=== PATIENT | female | born 1945 | race Caucasian/White ===

== ENCOUNTER → 2016-05-28 | Outpatient (CLI) | payer MEDICARE, BC ==
[~2016-05-28] MED LIST: ACIPHEX; ACIPHEX20 MG PO; CALCIUM 600MG+D1 TAB PO; CHOLESTEROL MA600 MG PO; FISH OIL1 IU PO; FISH OIL1000 MG PO; FORTEO; FORTEO250 MCG/ML SQ; FOSAMAX 10M10 MG/TAB PO; GLUCOSAMINE & C1 CA2 PO; IBUPROFEN PO; LORTAB 7.5/5001 TAB PO; MOTRIN 200200 MG/TAB PO; MULTIPLE VITAMI1 TA5 PO; PHENERGAN 25 TA25 MG PO; RECLAST5 MG/100 M IV; VITAMIN D2000 I1 PO; VITAMIN D32000 IU PO
== END ==
LOC: MC.RAD 14:40
DX: Z12.31 Encounter for screening mammogram for malignant neoplasm of breast (principal)

== ENCOUNTER 2016-06-24 08:39 | Outpatient (CLI) | payer MEDICARE, BC ==
[~2016-06-24] VITALS: Ht 165.1 cm; Wt 86.3 kg
[~2016-06-24 08:39] MED LIST changes: -FISH OIL1000 MG PO; -FOSAMAX 10M10 MG/TAB PO; -GLUCOSAMINE & C1 CA2 PO; -MOTRIN 200200 MG/TAB PO; -MULTIPLE VITAMI1 TA5 PO; -VITAMIN D32000 IU PO
[2016-06-24 09:15] VITALS: BP 100/69; PULSE 77; TEMP 98.1
[2016-06-24] MEDS ORDERED: VITAMIN D32000 IU PO (09:21)
[2016-06-24] MEDS ORDERED: MOTRIN 200200 MG/TAB PO (09:22)
[2016-06-24] MEDS ORDERED: FISH OIL1000 MG PO (09:22)
[2016-06-24] MEDS ORDERED: FOSAMAX 10M10 MG/TAB PO (09:27)
== END 2016-06-24 11:24 | disposition home or self-care (01) ==
LOC: EUO 08:39
DX: M81.0 Age-related osteoporosis without current pathological fracture (principal)
CPT/HCPCS: J3489

== ENCOUNTER 2016-11-12 07:04 | Day surgery (SDC) | payer MEDICARE, BC ==
[~2016-11-12] VITALS: Ht 167.6 cm; Wt 91.7 kg
[2016-11-12] VITALS (11 sets, daily range): BP systolic 105–138; BP diastolic 67–84; PULSE 53–100; TEMP 97.8–98.1
[~2016-11-12 07:04] MED LIST changes: +FISH OIL1000 MG PO; +FOSAMAX 10M10 MG/TAB PO; +MOTRIN 200200 MG/TAB PO; +VITAMIN D32000 IU PO
[2016-11-12] MEDS ORDERED: MULTIPLE VITAMI1 TA5 PO (07:23)
[2016-11-12] MEDS ORDERED: GLUCOSAMINE & C1 CA2 PO (07:24)
[2016-11-13 02:33] VITALS: BP 110/60; PULSE 77; TEMP 98
[2016-11-13 05:59] VITALS: BP 97/57; PULSE 61; TEMP 98.1
== END 2016-11-13 10:30 | disposition home or self-care (01) ==
LOC: SDCO 07:04 → SURG 11:15 → SDCO 11-13 10:30
DX: K21.0 Gastro-esophageal reflux disease with esophagitis (principal); K44.9 Diaphragmatic hernia without obstruction or gangrene; K22.70 Barrett's esophagus without dysplasia; G89.29 Other chronic pain; M54.9 Dorsalgia, unspecified; Z90.710 Acquired absence of both cervix and uterus; Z90.49 Acquired absence of other specified parts of digestive tract; Z80.0 Family history of malignant neoplasm of digestive organs; Z80.9 Family history of malignant neoplasm, unspecified
CPT/HCPCS: OP; J0690; J1100; J2270; J2405; J2704; J2710; J2765; J3010; J7120

== ENCOUNTER 2017-06-17 14:45 | Outpatient (CLI) | payer MEDICARE, BC ==
[~2017-06-17] VITALS: Ht 167.6 cm; Wt 90.9 kg
[~2017-06-17 14:45] MED LIST changes: +GLUCOSAMINE & C1 CA2 PO; +MULTIPLE VITAMI1 TA5 PO
[2017-06-17 15:12] VITALS: BP 113/76; PULSE 80; TEMP 97.4
== END 2017-06-17 16:37 | disposition home or self-care (01) ==
LOC: EUO 14:45
DX: M81.0 Age-related osteoporosis without current pathological fracture (principal)
CPT/HCPCS: J3489

== ENCOUNTER → 2017-08-06 | Outpatient (CLI) | payer MEDICARE, BC | LOC: COL.RAD 09:50 | DX: K22.4 Dyskinesia of esophagus (principal) ==

== ENCOUNTER → 2017-10-22 | Outpatient (CLI) | payer MEDICARE, BC | LOC: COL.RAD 11:32 | DX: C69.31 Malignant neoplasm of right choroid (principal); M25.811 Other specified joint disorders, right shoulder ==

== ENCOUNTER → 2018-04-10 | Outpatient (CLI) | payer MEDICARE, BC | LOC: MC.RAD 14:20 | DX: Z12.31 Encounter for screening mammogram for malignant neoplasm of breast (principal) ==

== ENCOUNTER 2018-07-22 15:12 | Outpatient (CLI) | payer MEDICARE, BC ==
[~2018-07-22] VITALS: Ht 167.6 cm; Wt 93.1 kg
[2018-07-22 15:29] VITALS: BP 103/59; PULSE 78; TEMP 98
[2018-07-22] MEDS ORDERED: DEXILANT60 MG PO (15:33)
== END 2018-07-22 16:18 | disposition home or self-care (01) ==
LOC: EUO 15:12
DX: M81.0 Age-related osteoporosis without current pathological fracture (principal); Z79.899 Other long term (current) drug therapy
CPT/HCPCS: J3489

== ENCOUNTER → 2018-08-07 | Outpatient (CLI) | payer MEDICARE, BC ==
[~2018-08-07] MED LIST changes: +DEXILANT60 MG PO
== END ==
LOC: COL.VAS 14:00
DX: R60.0 Localized edema (principal)

== ENCOUNTER 2019-10-01 15:10 | Outpatient (CLI) | payer MEDICARE, BC ==
[~2019-10-01] VITALS: Ht 167.6 cm; Wt 87.0 kg
[2019-10-01 16:00] VITALS: BP 108/70; PULSE 70; TEMP 97.8
== END 2019-10-01 17:06 | disposition home or self-care (01) ==
LOC: EUO 15:10
DX: M81.0 Age-related osteoporosis without current pathological fracture (principal)
CPT/HCPCS: J3489

== ENCOUNTER → 2020-06-19 | Outpatient (CLI) | payer MEDICARE, BC | LOC: MC.RAD 14:15 | DX: Z12.31 Encounter for screening mammogram for malignant neoplasm of breast (principal) ==

== ENCOUNTER 2020-10-20 14:05 | Emergency (ER) | payer MEDICARE, BC ==
[~2020-10-20] VITALS: Ht 167.6 cm; Wt 79.5 kg
[2020-10-20 14:14] VITALS: TEMP 98.8
[2020-10-20 16:45] VITALS: BP 100/76; PULSE 84
== END 2020-10-20 16:45 | disposition home or self-care (01) ==
LOC: COL.ER 14:05
DX: S02.42XA Fracture of alveolus of maxilla, initial encounter for closed fracture (principal); S60.211A Contusion of right wrist, initial encounter; K21.9 Gastro-esophageal reflux disease without esophagitis; Z79.899 Other long term (current) drug therapy; W01.198A Fall on same level from slipping, tripping and stumbling with subsequent striking against other object, initial encounter; Y93.02 Activity, running

== ENCOUNTER 2023-11-09 14:53 | Inpatient (IN) | payer MEDICARE, BC ==
[~2023-11-09] VITALS: Ht 167.6 cm; Wt 78.1 kg
[~2023-11-09 14:53] MED LIST changes: +ASPIRIN E.C. 8181 MG PO; +EUCERIN1 CRE TP; +EVENITY (2210 MG/2.3 SQ; +PROTONIX 40MG T40 MG PO; +TYLENOL 500MG500 MG PO; +ULTRAM 50MG TAB50 MG PO; +VOLTAREN GEL 1%1 TU TP
[2023-11-09] MEDS ORDERED: Acetaminophen 500 MG TAB PO PRN (17:15)
[2023-11-09] MEDS ORDERED: traMADol 50 MG TAB PO PRN (17:30)
[2023-11-09] MEDS ORDERED: Mineral Oil/Petrolatum Cream 113 GM Jar TP PRN (17:30)
--- NOTE | 2023-11-09 19:27 | NUR ---
RECEIVED CHANGE OF SHIFT REPORT FROM DAY SHIFT NURSE. PATIENT RESTING IN BED, FRIEND AT BEDSIDE. EXIT ALARM ON, CALL LIGHT IN REACH.
--- NOTE | 2023-11-09 20:00 | NUR ---
UP WITH ASSIST X1, GAITBELT/FWW WITH SLOW GAIT DUE TO PAIN WITH MOVEMENT OF LLE. DENIES CHEST PAIN/SHORTNESS OF BREATH/NAUSEA AT THIS TIME. DENIES PASSING STOOL TODAY. SALINE LOCK IN PLACE. EXIT ALARM ON WHEN BACK IN BED, CALL LIGHT WITHIN PATIENT'S REACH. SEE MAR FOR PAIN OINTMENT APPLIED TO LEFT HIP.
[2023-11-09 20:10] VITALS: BP 101/63; PULSE 93; TEMP 98.7
[2023-11-09 22:00] VITALS: BP_SYST 101
[2023-11-10 06:00] VITALS: BP 89/44; PULSE 86; TEMP 98.2
[2023-11-10 07:00] VITALS: BP_SYST 89
--- NOTE | 2023-11-10 07:11 | NUR ---
CHANGE OF SHIFT REPORT GIVEN TO DAY SHIFT NURSEABHIJEET.
--- NOTE | 2023-11-10 08:30 | NUR ---
PATIENT IS ALERT AND ORIENTATED. VSS. PATIENT'S SBP RUNS LOW AT BASELINE. INCISION TO R HIP IS COVERED WITH AQUACELL AND IS CLEAN DRY AND INTACT. NO C/O PAIN AT THIS TIME. PATIENT C/O NAUSEA. PRN ZOFRAN ADMINISTERED TO PATIENT. PATIENT IS UP WITH ASSIST X1 WITH WALKER AND GAIT BELT. PATIENT HAS AN PERIPHERAL IV IN RAC. NO S/S OF COMPLICATIONS. NO FURTHER NEEDS AT THIS TIME. CALL LIGHT WITHIN REACH.
[2023-11-10 08:55] VITALS: BP 104/63
[2023-11-10] MEDS ORDERED: Calcium Carb/Vit D3 500 mg-200 Units TAB PO SCH (09:00)
[2023-11-10] MEDS ORDERED: Docusate Sodium 100 MG CAP PO SCH (09:00)
[2023-11-10] MEDS ORDERED: Multivitamin TAB PO SCH (09:00)
[2023-11-10] MEDS ORDERED: Polyethylene Glycol 3350 17 GM PDS PO SCH ×2 (09:00→21:00)
--- NOTE | 2023-11-10 12:50 | NUR ---
Data: Spiritual care visit offered during Regulator Operator rounds. Patient declined because she is trying to nap before her next physical therapy session. Assessment: None at this time. Plan of Care: Chaplains will remain available as needed/requested while Patient is admitted to this hospital.
--- NOTE | 2023-11-10 15:10 | NUR ---
Roving Changer met with patient to complete initial intake and welcome her to the rehab unit. Patient lives in [place] and sees Dr. Kerrie Richards for primary care. Patient gets her medications from [facility] with no difficulties and reported she has a cane, walker, shower chair, bedside commode, and stool riser available at home. Patient reported she is normally independent with ADLS including driving. Patient stated she used to have DPOA-HC designating a friend that is now . Patient was not interested in completing DPOA-HC at this time as she stated she did not know who she would want to designate. Patient's friend, Miracle (ph#[phone]) is at bedside and supportive.
[2023-11-10 17:46] VITALS: BP 97/64; PULSE 94; TEMP 98.1
[2023-11-10 19:00] VITALS: BP_SYST 97
--- NOTE | 2023-11-10 19:41 | NUR ---
RECEIVED CHANGE OF SHIFT REPORT FROM DAY SHIFT NURSE.
--- NOTE | 2023-11-10 20:00 | NUR ---
DENIES CHEST PAIN/SHORTNESS OF BREATH/NAUSEA AT THIS TIME. DENIES PASSING STOOL TODAY. DENIES FEELING BLOATED OR CONSTIPATED CURRENTLY. DECREASED ROM/STRENGTH TO LLE DUE TO PAIN DUE TO S/P HIP SURGERY REPAIR. DENIES NUMBNESS/TINGLING TO BLE AT THIS TIME. OBSERVED GAIT VERY SLOW/HESITATING WITH LLE DUE TO PAIN WITH MOVEMENT. PATIENT REPORTS HAVING PAIN TO LEFT ANTERIOR THIGH AREA WITH ALL MOVEMENT. PATIENT RESTING IN BED WITH EXIT ALARM ON, CALL LIGHT WITHIN PATIENT'S REACH.
--- NOTE | 2023-11-10 23:35 | NUR ---
COMPLAINED OF SEVERE LEFT ANT THIGH PAIN WITH MOVEMENT, GIVEN PAIN MEDS, SEE WILI AND APPLIED FRESH ICE PACK TO AREA OF COMPLAINTS. APPLIED ALSO PAIN CREAM PER PATIENT REQUEST.
[2023-11-11 06:00] VITALS: BP 95/58; PULSE 82; TEMP 97.9
[2023-11-11 06:30] VITALS: BP_SYST 95
--- NOTE | 2023-11-11 07:15 | NUR ---
CHANGE OF SHIFT REPORT GIVEN TO DAY SHIFT NURSETON.
[2023-11-11 17:07] VITALS: BP 104/66; PULSE 94; TEMP 99.1
[2023-11-11 19:00] VITALS: BP_SYST 104
--- NOTE | 2023-11-11 19:00 | NUR ---
RECEIVED CHANGE OF SHIFT REPORT FROM DAY SHIFT NURSE. PATIENT RESTING IN BED, EXIT ALARM ON, CALL LIGHT WITHIN PATIENT'S REACH.
[2023-11-11] MEDS ORDERED: Sennosides/Docusate 8.6-50 MG TAB PO SCH (21:00)
[2023-11-12 05:40] VITALS: BP 96/59; PULSE 82; TEMP 98.4
--- NOTE | 2023-11-12 07:29 | NUR ---
CHANGE OF SHIFT REPORT GIVEN TO DAY SHIFT NURSEABHIJEET.
[2023-11-12 07:40] VITALS: BP_SYST 96
--- NOTE | 2023-11-12 08:00 | NUR ---
PATIENT A&O. VSS. NO C/O PAIN OR N/V AT THIS TIME. PATIENT IS ASSIST X1 WITH WALKER AND GAIT BELT. L HIP DRESSING IS AN AQUACELL AND IS CLEAN, DRY, AND INTACT. PATIENT WANTS TO TRY THERAPIES WITHOUT PRN PAIN MEDICATIONS, BUT WILL NOTIFY STAFF IS MEDS ARE NEEDED FOR PAIN. PATIENT IS EATING BREAKFAST. NO FURTHER NEEDS AT THIS TIME. CALL LIGHT WITHIN REACH.
--- NOTE | 2023-11-12 09:26 | NUR ---
PATIENT ALERT AND ORIENTED X4. VSS. PATIENT HERE FOR LEFT HIP FRACTURE. AQUACELL TO LEFT HIP, CDI. PATIENT REPORTS MILD PAIN, DENIES NEED FOR PAIN MEDICATION THIS AM. AM MEDS ADMINISTERED. PATIENT ATE TWO BITES OF BREAKFAST, REPORTS FOOD IS NOT THAT GREAT, PATIENT OFFERED TWO PUDDING PACKS. NO FURTHER NEEDS. CALL LIGHT IN REACH. BED ALARM ON.
--- NOTE | 2023-11-12 13:09 | NUR ---
Machine Shop Repair Technician met with patient and her friend, Miracle at bedside to review and present copy of team conference notes. No discharge date has been set at this time. SW scheduled family meeting for Friday, the at 1015 with patient's friend, Miracle. SW invited patient to include anyone else she would want to participate.
[2023-11-12] MEDS ORDERED: oxyCODONE 5 MG TAB PO PRN (17:30)
[2023-11-12 17:56] VITALS: BP 121/70; PULSE 96; TEMP 99
[2023-11-12 19:00] VITALS: BP_SYST 121
--- NOTE | 2023-11-13 01:44 | NUR ---
NURSING SHIFT ASSESSMENT COMPLETED. THE PATIENT WAS ALERT AND ORIENTED UPON ASSESSMENT. THE PATIENT WAS ASSISTED 1:1 WITH A GAIT BELT AND A WALKER TO THE BATHROOM. THE PATIENT TOLERATED THE ACTIVITY, BUT PAIN WAS NOTED. THE PATIENT DENIED THE NEED FOR PAIN INTERVENTION AT THIS TIME. EVENING MEDICATIONS AND THE PLAN OF CARE WAS DISCUSSED. NO OTHER NEEDS AT THIS TIME. CALL LIGHT AND PERSONAL BELONGINGS WITHIN REACH. BED IN LOW POSITION AND THE BED ALARM IS ON.
[2023-11-13 05:17] VITALS: BP 94/61; PULSE 75; TEMP 98
[2023-11-13 07:00] VITALS: BP_SYST 94
--- NOTE | 2023-11-13 08:00 | NUR ---
PATIENT A&O X4. VSS. AQUACELL DRESSING TO L HIP IS CLEAN, DRY, AND INTACT. PRN PAIN MEDS GIVEN FOR C/O PAIN. PATIENT USING ICE ON L LEG. TRANSFER WITH ASSIST X1, WALKER, AND GAIT BELT. NO FURTHER NEEDS AT THIS TIME. CALL LIGHT WITHIN REACH.
--- NOTE | 2023-11-13 10:23 | NUR ---
PATIENT ALERT AND ORIENTED X4. VSS. PATIENT HERE FOR RIGHT HIP FRACTURE. AQUACELL CDI. PATIENT TOLERATING PO. AM MEDS ADMINISTERED. NO FURTHER NEEDS. CALL LIGHT IN REACH. BED ALARM ON.
--- NOTE | 2023-11-13 14:31 | NUR ---
Admission QIM scores were reviewed by the team. Code of 2 chosen for putting on/taking off footwear was determined by team discussion to be the most usual performance before interventions for this patient during the assessment period. Code of 2 chosen for lying to sitting side of bed was determined by team discussion to be the most usual performance before interventions for this patient during the assessment period. Code of 3 chosen for chair to bed was determined by team discussion to be the most usual performance for this patient during the discharge assessment period.--Aracelis Brock,
[2023-11-13 17:56] VITALS: BP 108/68; PULSE 89; TEMP 99
[2023-11-13 19:00] VITALS: BP_SYST 108
--- NOTE | 2023-11-14 02:37 | NUR ---
NURSING SHIFT ASSESSMENT COMPLETED. THE PATIENT WAS ALERT AND ORIENTED. THE PATIENT RATED HER LEFT HIP PAIN 3/10 AND DID REQUEST PAIN MEDICATION AT THIS TIME. THE PATIENT WAS ALSO ASSISTED TO THE BATHROOM WITH 1:1, GAIT BELT AND A WALKER. THE PATIENT TOLERATED THE ACTIVITY WELL. A FULL MUG OF FRESH ICE WAS ALSO PROVIDED. NO OTHER NEEDS AT THIS TIME. THE PLAN OF CARE AND EVENING MEDICATIONS WERE REVIEWED. BED IN LOW POSITION, BED ALARM ON. CALL LIGHT AND PERSONAL BELONGINGS WITHIN REACH.
[2023-11-14 04:39] VITALS: BP 109/66; PULSE 71; TEMP 97.6
[2023-11-14 07:50] VITALS: BP_SYST 109
--- NOTE | 2023-11-14 10:07 | NUR ---
Patient awake, alert and oriented. Denies chest pain, shortness of breath, or dizziness. C/O left hip pain, pain controlled with medication. Dressing in place to left hip incision, C/D/I. Bed in lowest position with call light within reach.
--- NOTE | 2023-11-14 16:50 | NUR ---
Patient still reporting large amounts of pain in left leg after first dose of oxycodone, 2nd dose given per order. Patient's leg repositioned, ice applied per request.
[2023-11-14 16:51] VITALS: BP 123/69; PULSE 68; TEMP 98.4
--- NOTE | 2023-11-14 16:53 | NUR ---
Screen Printer met with patient to check in before the weekend. Patient has requested no visitors at this time because her friend, Miracle has been here daily and patient feels she has been overstepping her boudaries. Patient expressed some worry about returning home and running into the same issues. SW spoke with patient about boundary setting and encouraged her to focus on her needs and recovery.
--- NOTE | 2023-11-14 20:00 | NUR ---
PATIENT IS A&O. VSS. PATIENT RECENTLY BACK FROM BATHROOM AND REPOSITIONED TO COMFORT UP IN BED. C/O PAIN IN LLE AND REQUESTING SOMETHING FOR PAIN BEFORE BED. GAVE PRN OXYCODONE WITH HS MEDS. NO C/O N/V. HEAD TO TOE ASSESSMENT COMPLETE. LEFT HIP DSG IS CD&I WITH Casual StepsEL. TEDS TO BLE. NO OTHER NEEDS AT THIS TIME. CALL LIGHT IN REACH. BED ALARM ON.
[2023-11-15 05:16] VITALS: BP 107/69; PULSE 73; TEMP 97.6
[2023-11-15 07:11] VITALS: BP_SYST 107
--- NOTE | 2023-11-15 08:40 | NUR ---
PT RESTING IN BED, ALERT AND ORIENTEDX4. NO COMPLAINTS OF PAIN AT THIS TIME. ASSESSED PT. TOOK AQUACELL DRESSING OFF. INSCISION IS OPEN TO AIR. EDGES WELL APROXIMATED. GAVE MORNING MEDS. NO OTHER COMPLAINTS AT THIS TIME. CALL LIGHT WITHIN REACH.
[2023-11-15 16:38] VITALS: BP 92/57; PULSE 80; TEMP 98
[2023-11-15 19:18] VITALS: BP_SYST 92
--- NOTE | 2023-11-15 19:19 | NUR ---
Bedside report recevied from ARIANNA aVldes. Pt awake in bed with no complaints. Call light within reach and fall precautions in place.
--- NOTE | 2023-11-15 20:04 | NUR ---
Pt awake resting in bed with complaints of pain rating 3/10 in Lt hip. Shift assessment completed. Pt A&O x4. VSS. Ice pack placed to Lt hip. Fresh ice water provided to pt. Pt has no request at this time. Call light within reach and fall precautionsin place.
--- NOTE | 2023-11-16 00:15 | NUR ---
Received report from Amanda KELLER.
--- NOTE | 2023-11-16 00:30 | NUR ---
Patient resting in bed, eyes closed, looks comfortable, respirations even and unlabored.
[2023-11-16 05:04] VITALS: BP 107/65; PULSE 66; TEMP 98
--- NOTE | 2023-11-16 05:48 | NUR ---
Patient complained of nausea, zofran given ODT, see emar for details , will continue to monitor.
--- NOTE | 2023-11-16 06:29 | NUR ---
Patient reports relief from nausea and requested for a pain pill, offered tylenol but wanted oxycodone, oxycodone given per request.
[2023-11-16 06:50] VITALS: BP_SYST 107
--- NOTE | 2023-11-16 06:50 | NUR ---
Pt laying in bed. Denies needs at this time. Call light in reach and bed alarm on.
--- NOTE | 2023-11-16 07:48 | NUR ---
Pt laying in bed. A&Ox4. VSS. S1S2. Clear lungs on RA. ABD round, soft, non-tender with audible bowel sounds. Palpable pulses in all extremities with 4/5 strength. Pt states pain 2/10 is tolerable, left hip. Incision on L hip has some ecchymosis around upper half, steristrips in place, WA. Pt has TEDs on BLE, refuses SCDs. Pt states she likes to move her feet around in bed and does not like how the SCDs hold her down. Pt refused breakfast this AM, states "I am not hungry, may have yogurt or pudding later." No further needs. Calllight in reach and bed alarm on.
[2023-11-16 17:35] VITALS: BP 104/66; PULSE 81; TEMP 98.7
[2023-11-16 19:10] VITALS: BP_SYST 104
--- NOTE | 2023-11-16 19:52 | NUR ---
Patient assessed at this time, see shift assessment, denies pain or discomfort, took pills fine, denies further needs, call light and personal items within reach, will continue to monitor.
--- NOTE | 2023-11-17 | NUR ---
Patient up to the bathroom at this time and voided, reports minimal pain, denies further needs, will monitor.
[2023-11-17 04:52] VITALS: BP 102/66; PULSE 80; TEMP 98.1
--- NOTE | 2023-11-17 06:30 | NUR ---
Pt laying in bed. Pt requesting pain meds prior to PT this AM. No further needs. Call light in reach and bed alarm on.
[2023-11-17 06:51] VITALS: BP_SYST 102
--- NOTE | 2023-11-17 07:52 | NUR ---
Pt laying in bed. A&Ox4. VSS. BP is soft, but this is normal for this Pt. S1S2. Clear lungs on RA. ABD round, soft, non-tender with audible bowel sounds. Pt states Miralax is not working for her. Pt reports not having BMs and not eating a lot. Discussed importance of eating in order to heal and produce a BM. No IV site. Palpable pulses in all extremities. Incision on L hip is WA with steristrips in place. Small amounts of ecchymosis around incision, but decreased from yesterday. Ice pack in place. Pt requested pain meds prior to therapy session this AM. Pt reporting minimal pain 2/10 in left hip after moving this AM. Administered pain meds as per Pt's request. Call light in reach and bed alarm on.
[2023-11-17 11:57] LABS: BASO # 0.1 K/mm3 (0.0-0.2); BASO % 1.3 % (0.0-2.0); EOS # 0.5 K/mm3 (0.0-0.7); EOS % 6.6 % (0.0-4.0); GRAN # 4.5 K/mm3 (1.4-6.5); GRAN % 65.4 % (42.2-75.2); HEMOGLOBIN 11.2 g/dl (12.5-16.0); LYMPH # 1.2 K/mm3 (1.2-3.4); LYMPH % 17.7 % (20.0-51.0); MEAN CELL VOLUME 90 fl (80.0-100.0); MEAN CORPUSCULAR HEMOGLOBIN 30 pg (27-31); MEAN CORPUSCULAR HGB CONC 34 g/dl (33.0-37.0); MEAN PLATELET VOLUME 9.2 fl (7.4-10.4); MONO # 0.6 K/mm3 (0.1-0.6); MONO % 8.6 % (1.7-9.3); PLATELET COUNT 360 K/mm3 (130-400); REDCELL DISTRIBUTION WIDTH-CV 12.8 % (11.5-14.5)
[2023-11-17 12:01] LABS: HEMATOCRIT 33.4 % (37.0-47.0)
[2023-11-17 12:13] LABS: CALCIUM 9.1 mg/dL (8.4-10.2); CREATININE, serum 0.75 mg/dL (0.57-1.11); POTASSIUM 4.3 mEq/L (3.5-4.5)
--- NOTE | 2023-11-17 14:52 | NUR ---
Laundry Operator Finishing met with patient to follow up after the weekend. Patient stated she wants to do Home Health when she is discharged as she does not have reliable transportation to outpatient therapy at this time. SW advised this will be established prior to her discharge.
--- NOTE | 2023-11-17 14:52 | NUR ---
Pt sleeping. Unable to offer Ensure at this time.
[2023-11-17 17:38] VITALS: BP 101/66; PULSE 77; TEMP 98.2
[2023-11-17 19:00] VITALS: BP_SYST 101
--- NOTE | 2023-11-17 21:00 | NUR ---
Assessment complete. A&Ox3. Denies pain/nausea/shortness of breath. VS stable. Left hip incision-edges well approximated-steri strips. Patient states she does not want her stool softners or pain meds until 0700. Discussed that stool softners were BID-still states she doesnt want them now will take at 07. Otherwise no questions/concerns at this time. Instructed to call if pain increases and pain meds needed. Verbalizes understanding. Call light in reach. Will monitor.
--- NOTE | 2023-11-17 21:00 | NUR ---
Assessment complete. A&Ox3. Denies pain/nausea/shortness of breath. VS stable. Left hip incision-edges well approximated-steri strips. Patient states she does not need any pain medicine that she wants to wait to take it before PT tomorrow. Instructed patient that she could take it now and tomorrow AM if needed. Denies need at this time. Instructed to call if pain level increases or is needs change. Verbalizes understanding. Otherwise no questions/concerns at this time. Call light in reach.Will monitor.
--- NOTE | 2023-11-18 00:20 | NUR ---
Patient resting in bed eyes closed. No s/s of pain or discomfort noted. Will monitor.
--- NOTE | 2023-11-18 05:48 | NUR ---
Patient had an uneventful night. Denied pain/nausea/shortness of breath. VS remained stable. Stand by assist with walker/gait belt-steady gait. Denies current needs. Call light in reach. Will monitor.
[2023-11-18 05:52] VITALS: BP 104/67; PULSE 71; TEMP 97.9
[2023-11-18 07:07] VITALS: BP_SYST 104
--- NOTE | 2023-11-18 09:58 | NUR ---
PT UP TO SOB FOR MINIMAL BREAKFAST. PT DENIES NEEDS. PRN PAIN MEDS GIVEN PER PT REQUEST. PT PARTICIPATING IN THERAPIES PER CAREPLAN. PT IS A/O X4. PAIN CONTROLLED WITH PO MEDS AT THIS TIME.
[2023-11-18 17:38] VITALS: BP 101/64; PULSE 84; TEMP 98.1
[2023-11-18 18:51] VITALS: BP_SYST 101
--- NOTE | 2023-11-18 19:45 | NUR ---
PT A&O X4 LAYING IN BED. AMBULATED TO RESTROOM WITH SBA. VSS. SHIFT ASSESSMENT & HS MEDS COMPLETE. PT RATING PAIN 6/10 TO LEFT HIP, GAVE PRN OXYCODONE & ICEPACK. INCISION TO LEFT HIP IS WELL APPROXIMATED & STERISTRIPS INTACT. PT DENYING OTHER NEEDS. CALL LIGHT IN REACH
--- NOTE | 2023-11-19 01:53 | NUR ---
PT REPORTING PAIN 5/10 TO LLE & REQUESTING PAIN MED, GAVE PRN OXYCODONE PER MAR
[2023-11-19 05:46] VITALS: BP 106/55; PULSE 64; TEMP 98.6
--- NOTE | 2023-11-19 06:16 | NUR ---
PT UP TO RESTROOM WITH SBA. STATES HER LEFT HIP IS SORE & SHE IS HAVING SOME PAIN, BUT DENIES THE NEED FOR PAIN MEDICATION AT THIS TIME. CALL LIGHT IN REACH & FALL PRECAUTIONS IN PLACE
[2023-11-19 07:00] VITALS: BP_SYST 106
--- NOTE | 2023-11-19 08:23 | NUR ---
PT REFUSING BREAKFAST. REQUESTING PAIN MED TO PRE MEDICATE FOR THERAPY. CAREPLAN REVIEWED WITH PT. VSS, DISCHARGE REVIEW LATER TODAY. PT DENIES NEEDS AT THIS TIME.
--- NOTE | 2023-11-19 10:22 | NUR ---
PT OK TO BED MOD I IN ROOM PER DR. JORDAN.
--- NOTE | 2023-11-19 14:56 | NUR ---
Cargo Service Agent participated in patient conference which included the patient and the rehab team. Dr. Carver provided a medical update followed by report from PT/OT. ANA discussed discharge date of Nov 20 and the recommendation for Home Health. Patient is agreeable to this plan. Later in the afternoon, ANA provided a copy of team conference notes along with a Medicare.gov list of agencies for patient to choose from.
[2023-11-19 17:09] VITALS: BP 94/59; PULSE 72; TEMP 98.2
[2023-11-19 19:27] VITALS: BP_SYST 94
--- NOTE | 2023-11-19 19:30 | NUR ---
PT A&O X3 LAYING IN BED. VSS. SHIFT ASSESSMENT & HS MEDS COMPLETE. PT REQUESTING PAIN PILL FOR 10/21 TO LEFT HIP, GAVE PRN OXYCODONE PER JUN & ICEPACK. PT NOW MOD I IN HER ROOM. INCISION TO LEFT HIP WELL APPROXIMATED. BLE TEDS ON. PT DENYING FURTHER NEEDS. CALL LIGHT IN REACH
--- NOTE | 2023-11-20 04:00 | NUR ---
PT REPORTING PAIN 5/10 TO LEFT HIP & GROIN, GAVE PRN OXYCODONE AND ICEPACK. DENYING FURTHER NEEDS. CALL LIGHT IN REACH
[2023-11-20 05:37] VITALS: BP 96/56; PULSE 71; TEMP 98.1
[2023-11-20 07:00] VITALS: BP_SYST 96
--- NOTE | 2023-11-20 08:13 | NUR ---
PT RESTING IN BED ATE 20% OF BREAKFAST. PAIN CONTROLLED WITH PO PAIN MEDS. REVIEWED CAREPLAN WITH PATIENT. PLAN ON DISCHARGE TOMMORROW. PT INDEPENDENT IN ROOM.
--- NOTE | 2023-11-20 15:30 | NUR ---
Grounds Worker met with patient to present and review IM form. Patient verbalized understanding and provided signature. SW placed form in chart and provided copy to patient. SW also followed up on choice for HH and she would like to use [facility]. ANA contacted [facility] and faxed referral. ANA received a message from ARIANNA Claudio who advised they can accept.
[2023-11-20 17:02] VITALS: BP 105/53; PULSE 66; TEMP 97.5
[2023-11-20 18:45] VITALS: BP_SYST 105
--- NOTE | 2023-11-20 19:45 | NUR ---
Patient resting in bed. Denies any pain at this time. Fresh water provided. Assessment complete. Call light and persoanl items in reach. Bed in low position.
[2023-11-21 05:10] VITALS: BP 113/68; PULSE 70; TEMP 97.9
[2023-11-21 07:00] VITALS: BP_SYST 113
[2023-11-21] MEDS ORDERED: VOLTAREN GEL 1%1 TU TP (09:00)
[2023-11-21] MEDS ORDERED: ASPIRIN E.C. 8181 MG PO (09:00)
[2023-11-21] MEDS ORDERED: MIRALAX238G PO (09:01)
[2023-11-21] MEDS ORDERED: SENOKOT S 50 MG1 TAB PO (09:01)
[2023-11-21] MEDS ORDERED: TYLENOL 500MG500 MG PO (09:01)
[2023-11-21] MEDS ORDERED: ROXICODONE 55 MG/TAB PO (09:02)
--- NOTE | 2023-11-21 09:30 | NUR ---
PATIENT GIVEN DISHCARGE INSTRUCTINOS AND EDUCATION. PATIENT TAKEN TO ER ENTRANCE VIA WHEELCHAIR BY PCT WHERE SHE LEFT IN STABLE CONDITIONS WITH ALL HER BELONGINGS , WITH HER FRIEND.
--- NOTE | 2023-11-21 14:22 | NUR ---
Sales Assistant Entertainment And Media faxed discharge orders to [facility]. Shorty following, SW received a message from Dhaval Claudio RN who advised they don't have PT until the following Friday and patient would now prefer another agency so she can start therapy sooner. ANA contacted patient who wanted [facility]. SW contacted [facility] and faxed referral. Unfortunately, they also do not have PT availability at this time. ANA followed up with patient who then selected [facility]. ANA contacted Dayanna at [facility] and faxed referral. Dayanna left SW a message stating they have an admission scheduled for tomorrow with PT/OT starting early next week.
--- NOTE | 2023-11-24 15:15 | NUR ---
Discharge QIM scores were reviewed by the team. Code of 6 chosen for upper body dressing was determined by team discussion to be the most usual performance for this patient during the discharge assessment period. Code of 6 chosen for walking 10 feet was determined by team discussion to be the most usual performance for this patient during the discharge assessment period. Code of 6 chosen for walking 50 feet w/ 2 turns was determined by team discussion to be the most usual performance before interventions for this patient during the discharge assessment period. Code of 6 chosen for walking 150 feet was determined by team discussion to be the most usual performance for this patient during the discharge assessment period.--Aracelis Brock, PD
== END 2023-11-21 09:30 | disposition home health service (06) | DRG 561 ==
PROVIDERS: Physician Assistant; ADMIT Physical Medicine & Rehabilitation Sports Medicine
DX: S72.002D Fracture of unspecified part of neck of left femur, subsequent encounter for closed fracture with routine healing (principal); R26.89 Other abnormalities of gait and mobility; K59.00 Constipation, unspecified; D64.89 Other specified anemias; L29.9 Pruritus, unspecified; Z96.642 Presence of left artificial hip joint; Z79.899 Other long term (current) drug therapy; Z74.09 Other reduced mobility; Z87.39 Personal history of other diseases of the musculoskeletal system and connective tissue; Z87.442 Personal history of urinary calculi; Z79.82 Long term (current) use of aspirin; Z79.891 Long term (current) use of opiate analgesic; W18.39XD Other fall on same level, subsequent encounter

== ENCOUNTER 2024-01-30 16:24 | Observation (INO) | payer MEDICARE, BC ==
[~2024-01-30] VITALS: Ht 165.1 cm; Wt 79.5 kg
[~2024-01-30 16:24] MED LIST changes: +MIRALAX238G PO; +ROXICODONE 55 MG/TAB PO; +SENOKOT S 50 MG1 TAB PO
[2024-01-30] MEDS ORDERED: FLOMAX 0.40.4 MG/CAP PO (16:46)
[2024-01-30] MEDS ORDERED: DITROPAN XL 5MG5 M1 PO (16:47)
[2024-01-30] MEDS ORDERED: Ondansetron 4 MG/2 ML VIAL IV PRN (17:00)
[2024-01-30] MEDS ORDERED: Morphine 4 MG/ML VIAL IV PRN (17:00)
[2024-01-30] MEDS ORDERED: oxyCODONE 5 MG TAB PO PRN ×2 (17:00)
[2024-01-30] MEDS ORDERED: NS 1,000 ML IV SCH (17:00)
[2024-01-30] MEDS ORDERED: Naloxone 0.4 MG/ML VIAL IV PRN (17:00)
[2024-01-30] MEDS ORDERED: Ketorolac 15 MG/ML VIAL IV PRN (17:00)
--- NOTE | 2024-01-30 17:08 | NUR ---
Pt. arrived to the floor via wheelchair. Pt. is A&OX3, assessment complete. Pt. rates pain at a 9 on pain scale. 2 attempts to starte IV unsuccessful. Waiting for another nurse to attempt.
[2024-01-30 17:12] VITALS: BP 119/73; PULSE 64; TEMP 98
[2024-01-30] MEDS ORDERED: LR 1,000 ML IV SCH (17:45)
[2024-01-30 19:36] VITALS: BP 108/69; PULSE 68; TEMP 98
[2024-01-30 20:05] VITALS: BP_SYST 108
[2024-01-31] VITALS (12 sets, daily range): BP systolic 97–124; BP diastolic 51–66; PULSE 50–76; TEMP 97.4–98.2
[2024-01-31] MEDS ORDERED: hydrALAZINE 20 MG/ML 1 ML VIAL IV PRN (08:00)
[2024-01-31] MEDS ORDERED: Ondansetron 4 MG/2 ML VIAL IV PRN (08:00)
[2024-01-31] MEDS ORDERED: droPERidol 2.5 MG/ML 2 ML VIAL IV PRN (08:00)
[2024-01-31] MEDS ORDERED: HYDROmorphone 1 MG/1 ML SYRINGE [PACU/SDC ONLY] IV PRN (08:00)
[2024-01-31] MEDS ORDERED: Meperidine 50 MG/ML 1 ML VIAL IV PRN (08:00)
[2024-01-31] MEDS ORDERED: fentaNYL 50 MCG/ML 1 ML SYRINGE/VIAL [PACU/SDC ONLY] IV PRN ×2 (08:00)
[2024-01-31] MEDS ORDERED: fentaNYL 50 MCG/ML 2 ML VIAL ONE (08:57)
[2024-01-31] MEDS ORDERED: NS 10 ML IV ONE (08:57)
[2024-01-31] MEDS ORDERED: Ondansetron 4 MG/2 ML VIAL ONE (08:57)
--- NOTE | 2024-01-31 09:15 | NUR ---
Patient has done well this am. Pre op check list completed. Ticket to ride updated. Lr to gravitiy & pre op pepcid as ordered. rounded, consent obtained. Patient to OR with Paola
[2024-01-31] MEDS ORDERED: ePHEDrine 50 MG/ML VIAL ONE (10:18)
[2024-01-31] MEDS ORDERED: Lidocaine 2% (20 MG/ML) 20 ML UROJET UR ONE (10:22)
[2024-01-31] MEDS ORDERED: oxyCODONE/Acetaminophen 5-325 MG TAB PO PRN (11:00)
[2024-01-31] MEDS ORDERED: Hyoscyamine 0.125 MG Sublingual TAB SL PRN (11:00)
--- NOTE | 2024-01-31 12:46 | NUR ---
Data: Spiritual care visit attempted during Geological Technician rounds. Patient in surgery. No one in room. Will attempt again this afternoon.
--- NOTE | 2024-01-31 13:44 | NUR ---
Patient has done well post op. Tolerating pudding and liquids without nausea. Pain managed with medications as ordered. Voided x2, urine is blood tinged. Iv to DC. All discharge education reviewed. Denies questions and or concerns.
--- NOTE | 2024-01-31 14:27 | NUR ---
SW met with patient to complete intake and discuss discharge planning. Patient shared that she resides in [place], lives home alone and reports that she is independent with ADLs occassionally utilizes walker as needed, no other DMEs reported at this time. Patient confirmed that her NOK is friend Miracle Jean Baptiste [phone]. 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 Patient shared that her PCP is Dr Richards and her pharmacy of choice is [email or web address] in [place]. Discharge plan : home (pending any further medical recommendations)
--- NOTE | 2024-01-31 14:40 | NUR ---
Data: Spiritual care visit attempted twice. Patient was indisposed the first time and in the process of being discharged the second attempt.
== END 2024-01-31 15:28 | disposition home or self-care (01) ==
LOC: SDCO 16:24 → SURG 16:25 → SDCO 16:57 → SURG 16:58
PROVIDERS: ADMIT Urology
DX: N20.2 Calculus of kidney with calculus of ureter (principal); K21.9 Gastro-esophageal reflux disease without esophagitis; E66.9 Obesity, unspecified; Z85.840 Personal history of malignant neoplasm of eye; Z89.429 Acquired absence of other toe(s), unspecified side
CPT/HCPCS: C1769; C2617; G0378; G0379; J0690; J1885; J2270; J2405; J2704; J3010; J7030; J7120